=== PATIENT | male | born 1940 | race Hispanic/Latino ===

== ENCOUNTER 2017-07-04 13:15 | Outpatient (CLI) | payer MEDICARE, OTHER ==
--- NOTE | 2017-07-04 14:04 | XRay Report ---
XRAY CHEST TWO VIEWS: 07/04/17 13:15:00 CLINICAL: Cough. COMPARISON: None FINDINGS: Normal heart and pulmonary vasculature.Median sternotomy wires and mediastinal surgical clips. Prominent bibasal or reticular interstitial opacities. No air space disease or pleural effusion. The upper lung carrillo are clear.Arthritis of the right shoulder and spondylosis of the thoracic spine. No suspicious bone lesion. IMPRESSION: No CHF or pneumonia. 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 Consider high-resolution chest CT depending upon clinical symptoms and history.
== END 2017-07-04 13:16 | disposition home or self-care (01) ==
LOC: SPVIMAG 13:15
PROVIDERS: ATTEND Internal Medicine
DX: R05 Cough (principal); M19.011 Primary osteoarthritis, right shoulder; M47.894 Other spondylosis, thoracic region; Z98.890 Other specified postprocedural states
CPT/HCPCS: 71046